=== PATIENT | male | born 1970 | race Caucasian/White ===

== ENCOUNTER → 2023-07-13 06:44 | Outpatient (REF) | payer MEDICARE, SELFPAY ==
[2023-07-13 07:57] LABS: % Basophils 0.4 % (0-2); % Eosinophils 1.4 % (0-6); % Immature Granulocytes 0.2 % (0-0.5); % Lymphocytes 38.8 % (20.5-51.1); % Monocytes 5.8 % (1.7-9.3); % Neutrophils 53.4 % (42.2-75.2); Absolute Eosinophils 0.1 10^3/uL (0-0.7); Absolute Lymphocytes 3.7 10^3/uL (1.2-3.4); Absolute Monocytes 0.6 10^3/uL (0.1-0.6); Absolute Neutrophils 5.1 10^3/uL (1.4-6.5); Hematocrit 44.2 % (39.0-52.0); Hemoglobin 15.5 g/dL (13.0-18.0); Mean Corp Hgb Conc. 35.1 g/dL (33.0-37.0); Mean Corpuscular Hgb 28.5 pg (27.0-31.0); Mean Corpuscular Volume 81.3 fL (80.0-94.0); Nucleated Red Blood Cells % 0 % (-); Red Blood Cell Count 5.44 10^6/uL (4.70-6.10); Red Cell Dist. Width 13.3 % (11.5-14.5); White Blood Cell Count 9.5 10^3/uL (4.8-10.8)
[2023-07-13 08:32] LABS: Microalbumin, Random Urine 8.9 mg/dl (0.6-1.7)
[2023-07-13 08:44] LABS: Mean Platelet Volume 11.4 fL (7.4-10.4)
[2023-07-13 08:45] LABS: Platelet Count 179 10^3/uL (130-400)
[2023-07-13 10:14] LABS: ALT (SGPT) 73 U/L (0-50); AST (SGOT) 81 U/L (17-59); Albumin 4.6 g/dl (3.5-5.0); Alkaline Phosphatase 75 U/L (38-126); Blood Urea Nitrogen 18 mg/dl (9-20); Calcium 9.9 mg/dl (8.4-10.2); Carbon Dioxide 25 mmol/L (22-30); Chloride 98 mmol/L (98-107); Glucose 103 mg/dl (70-99); HDL Cholesterol 35 mg/dl; LDL Cholesterol, Calculated 40 mg/dl; Potassium 3.9 mmol/L (3.5-5.1); Sodium 137 mmol/L (135-145); Total Cholesterol 113 mg/dl (50-199); Total Protein 7.4 g/dl (6.3-8.2); Triglyceride 193 mg/dl (10-149); Very Low Density Lipoprotein 38 mg/dl (0-30); eGFR > 60.00
[2023-07-13 10:50] LABS: PSA, Total - Screen 1.92 ng/ml (0.0-4.0); TSH 2.93 uIU/ml (0.47-4.68)
[2023-07-13 12:03] LABS: Glycohemoglobin (HgbA1c) 7.2 % (4.0-5.6)
== END ==
LOC: REG 06:44
PROVIDERS: ATTENDING PHYSICIAN Internal Medicine
DX: M10.9 Gout, unspecified (principal); I10 Essential (primary) hypertension; E11.9 Type 2 diabetes mellitus without complications; I25.10 Atherosclerotic heart disease of native coronary artery without angina pectoris; I42.9 Cardiomyopathy, unspecified; G47.33 Obstructive sleep apnea (adult) (pediatric); R74.8 Abnormal levels of other serum enzymes; Z12.5 Encounter for screening for malignant neoplasm of prostate
CPT/HCPCS: 36415; 80053; 80061; 82043; 83036; 84443; 85025; G0103

== ENCOUNTER → 2023-12-06 06:20 | Outpatient (REF) | payer MEDICARE, SELFPAY ==
[2023-12-06 08:02] LABS: ALT (SGPT) 28 U/L (0-50); AST (SGOT) 35 U/L (17-59); Albumin 4.5 g/dl (3.5-5.0); Alkaline Phosphatase 52 U/L (38-126); Blood Urea Nitrogen 13 mg/dl (9-20); Calcium 9.9 mg/dl (8.4-10.2); Carbon Dioxide 24 mmol/L (22-30); Chloride 100 mmol/L (98-107); Glucose 90 mg/dl (70-99); HDL Cholesterol 31 mg/dl; Potassium 4.2 mmol/L (3.5-5.1); Sodium 136 mmol/L (135-145); Total Bilirubin 0.9 mg/dl (0.2-1.3); Total Cholesterol 210 mg/dl (50-199); Total Protein 7.1 g/dl (6.3-8.2); Uric Acid 5.1 mg/dl (3.5-8.5); eGFR > 60.00
[2023-12-06 08:04] LABS: Triglyceride 510 mg/dl (10-149)
[2023-12-06 08:28] LABS: LDL Cholesterol, Direct 107 mg/dl
[2023-12-06 10:30] LABS: Glycohemoglobin (HgbA1c) 5.3 % (4.0-5.6)
== END ==
LOC: REG 06:20
PROVIDERS: ATTENDING PHYSICIAN Internal Medicine
DX: E78.5 Hyperlipidemia, unspecified (principal); E11.9 Type 2 diabetes mellitus without complications; Z87.39 Personal history of other diseases of the musculoskeletal system and connective tissue
CPT/HCPCS: 36415; 80053; 80061; 83036; 83721; 84550

== ENCOUNTER → 2024-07-04 06:29 | Outpatient (REF) | payer MEDICARE, SELFPAY ==
[2024-07-04 07:50] LABS: ALT (SGPT) 95 U/L (0-50); AST (SGOT) 88 U/L (17-59); Albumin 4.8 g/dl (3.5-5.0); Alkaline Phosphatase 72 U/L (38-126); Blood Urea Nitrogen 14 mg/dl (9-20); Calcium 9.5 mg/dl (8.4-10.2); Carbon Dioxide 25 mmol/L (22-30); Chloride 100 mmol/L (98-107); Glucose 135 mg/dl (70-99); HDL Cholesterol 38 mg/dl; LDL Cholesterol, Calculated 61 mg/dl; Potassium 3.7 mmol/L (3.5-5.1); Sodium 137 mmol/L (135-145); Total Bilirubin 0.8 mg/dl (0.2-1.3); Total Cholesterol 160 mg/dl (50-199); Total Protein 7.4 g/dl (6.3-8.2); Triglyceride 309 mg/dl (10-149); Very Low Density Lipoprotein 61 mg/dl (0-30); eGFR > 60.00
== END ==
LOC: REG 06:29
PROVIDERS: ATTENDING PHYSICIAN Internal Medicine Cardiovascular Disease; FAMILY PHYSICIAN Internal Medicine
DX: E78.5 Hyperlipidemia, unspecified (principal)
CPT/HCPCS: 36415; 80053; 80061

== ENCOUNTER → 2024-07-17 07:11 | Outpatient (REF) | payer MEDICARE, SELFPAY ==
[2024-07-17 08:18] LABS: % Basophils 0.5 % (0-2); % Eosinophils 2.7 % (0-6); % Immature Granulocytes 0.5 % (0-0.5); % Lymphocytes 41.2 % (20.5-51.1); % Monocytes 6.4 % (1.7-9.3); % Neutrophils 48.7 % (42.2-75.2); Absolute Eosinophils 0.2 10^3/uL (0-0.7); Absolute Lymphocytes 3.5 10^3/uL (1.2-3.4); Absolute Monocytes 0.6 10^3/uL (0.1-0.6); Absolute Neutrophils 4.2 10^3/uL (1.4-6.5); Hematocrit 43.9 % (39.0-52.0); Hemoglobin 15.6 g/dL (13.0-18.0); Mean Corp Hgb Conc. 35.5 g/dL (33.0-37.0); Mean Corpuscular Hgb 30.5 pg (27.0-31.0); Mean Corpuscular Volume 85.7 fL (80.0-94.0); Nucleated Red Blood Cells % 0 % (-); Platelet Count 189 10^3/uL (130-400); Red Blood Cell Count 5.12 10^6/uL (4.70-6.10); Red Cell Dist. Width 14.5 % (11.5-14.5); White Blood Cell Count 8.6 10^3/uL (4.8-10.8)
[2024-07-17 09:00] LABS: ALT (SGPT) 60 U/L (0-50); AST (SGOT) 48 U/L (17-59); Alkaline Phosphatase 71 U/L (38-126); Blood Urea Nitrogen 14 mg/dl (9-20); Calcium 9.7 mg/dl (8.4-10.2); Carbon Dioxide 23 mmol/L (22-30); Chloride 103 mmol/L (98-107); Glucose 131 mg/dl (70-99); HDL Cholesterol 36 mg/dl; LDL Cholesterol, Calculated 81 mg/dl; Potassium 3.9 mmol/L (3.5-5.1); Sodium 142 mmol/L (135-145); Total Bilirubin 0.9 mg/dl (0.2-1.3); Total Cholesterol 154 mg/dl (50-199); Total Protein 7.8 g/dl (6.3-8.2); Triglyceride 186 mg/dl (10-149); Very Low Density Lipoprotein 37 mg/dl (0-30); eGFR > 60.00
[2024-07-17 09:26] LABS: TSH 2.24 uIU/ml (0.47-4.68)
[2024-07-17 09:57] LABS: Microalbumin, Random Urine 5.2 mg/dl (0.6-1.7)
[2024-07-17 10:13] LABS: Glycohemoglobin (HgbA1c) 6.4 % (4.0-5.6)
[2024-07-18 14:33] LABS: PSA Total 1.4 ng/mL (0.0-4.0)
== END ==
LOC: REG 07:11
PROVIDERS: ATTENDING PHYSICIAN Internal Medicine
DX: E78.5 Hyperlipidemia, unspecified (principal); E11.9 Type 2 diabetes mellitus without complications; N40.0 Benign prostatic hyperplasia without lower urinary tract symptoms; R53.83 Other fatigue; M10.9 Gout, unspecified
CPT/HCPCS: 36415; 80053; 80061; 82043; 83036; 84153; 84154; 84443; 84550; 85025

== ENCOUNTER → 2024-09-10 06:36 | Outpatient (REF) | payer MEDICARE, SELFPAY ==
[2024-09-10 08:27] LABS: HDL Cholesterol 44 mg/dl; LDL Cholesterol, Calculated 82 mg/dl; Total Cholesterol 167 mg/dl (50-199); Triglyceride 207 mg/dl (10-149); Very Low Density Lipoprotein 41 mg/dl (0-30)
== END ==
LOC: REG 06:36
PROVIDERS: ATTENDING PHYSICIAN Student in an Organized Health Care Education/Training Program; FAMILY PHYSICIAN Internal Medicine
DX: I25.10 Atherosclerotic heart disease of native coronary artery without angina pectoris (principal)
CPT/HCPCS: 36415; 80061

== ENCOUNTER → 2024-10-07 06:27 | Outpatient (REF) | payer MEDICARE, SELFPAY ==
[2024-10-07 08:56] LABS: ALT (SGPT) 77 U/L (0-50); AST (SGOT) 55 U/L (17-59); Albumin 4.6 g/dl (3.5-5.0); Alkaline Phosphatase 75 U/L (38-126); Blood Urea Nitrogen 18 mg/dl (9-20); Calcium 9.1 mg/dl (8.4-10.2); Carbon Dioxide 21 mmol/L (22-30); Chloride 105 mmol/L (98-107); Glucose 101 mg/dl (70-99); HDL Cholesterol 34 mg/dl; LDL Cholesterol, Calculated 8 mg/dl; Potassium 3.9 mmol/L (3.5-5.1); Sodium 140 mmol/L (135-145); Total Cholesterol 72 mg/dl (50-199); Total Protein 7.3 g/dl (6.3-8.2); Triglyceride 154 mg/dl (10-149); Very Low Density Lipoprotein 30 mg/dl (0-30); eGFR > 60.00
[2024-10-10 00:40] LABS: Lipoprotein a (Lp a) 10 mg/dL (<=29)
== END ==
LOC: REG 06:27
PROVIDERS: ATTENDING PHYSICIAN Student in an Organized Health Care Education/Training Program; FAMILY PHYSICIAN Internal Medicine
DX: I25.10 Atherosclerotic heart disease of native coronary artery without angina pectoris (principal); E78.5 Hyperlipidemia, unspecified; E11.9 Type 2 diabetes mellitus without complications; R74.8 Abnormal levels of other serum enzymes; I10 Essential (primary) hypertension
CPT/HCPCS: 36415; 80053; 80061; 83695

== ENCOUNTER → 2025-01-13 06:56 | Outpatient (REF) | payer MEDICARE, SELFPAY ==
[2025-01-13 08:21] LABS: ALT (SGPT) 50 U/L (0-50); AST (SGOT) 41 U/L (17-59); Albumin 4.5 g/dl (3.5-5.0); Alkaline Phosphatase 58 U/L (38-126); Blood Urea Nitrogen 12 mg/dl (9-20); Calcium 9.3 mg/dl (8.4-10.2); Carbon Dioxide 26 mmol/L (22-30); Chloride 103 mmol/L (98-107); Glucose 118 mg/dl (70-99); HDL Cholesterol 35 mg/dl; LDL Cholesterol, Calculated -7 mg/dl; Potassium 3.7 mmol/L (3.5-5.1); Sodium 139 mmol/L (135-145); Total Protein 7.2 g/dl (6.3-8.2); Very Low Density Lipoprotein 69 mg/dl (0-30); eGFR > 60.00
== END ==
LOC: REG 06:56
PROVIDERS: ATTENDING PHYSICIAN Nurse Practitioner
DX: E78.5 Hyperlipidemia, unspecified (principal); E11.9 Type 2 diabetes mellitus without complications; R53.83 Other fatigue
CPT/HCPCS: 36415; 80053; 80061

== ENCOUNTER 2025-04-09 12:04 | Emergency (ER) | payer MEDICARE, SELFPAY ==
[2025-04-09 12:06] VITALS: BP 146/87
--- NOTE | 2025-04-09 12:43 | ED.GENMED ---
History of Present Illness
General
Chief Complaint: Foreign Body Removal
Time Seen by Provider: 04/09/25 12:43
History of Present Illness
History of Present Illness:
FOCUSED PAST MEDICAL HISTORY
- Diabetes, CAD/WI
REVIEW OF OLD RECORDS
- I reviewed records, the patient had colonoscopy in 2020
Note:
CHIEF COMPLAINT(S)
Swelling and difficulty removing a gold ring from the finger.
HISTORY OF PRESENT ILLNESS
The patient is a 55-year-old male who presents with significant swelling of the finger, leading to difficulty removing a gold ring. The patient recounted that the ring was placed on the finger on and swelling had been increasing
since. The patient initially sought care at an urgent care facility where an attempt was made to cut the ring using a manual cutter, leaving the ring partially cut and unable to be removed. The patient works in construction, which involves manual
handling and believes this may have contributed to the situation. The patient is diabetic, which raises concerns over potential impaired circulation and risk of infection. During the examination, swelling of the finger was observed, suggesting
impaired blood flow due to the constricting ring.
CHRONIC MEDICAL CONDITIONS SIGNIFICANTLY AFFECTING CARE
Diabetes Mellitus.
PHYSICAL EXAM
General: Alert, no acute distress.
Skin: Warm, dry.
Head: Normocephalic, atraumatic.
Neck: Supple, trachea midline.
Eyes, Ears, Nose, Mouth, and Throat: Oral mucosa moist.
Cardiovascular: Normal peripheral perfusion, no edema.
Respiratory: Respirations are non-labored.
Gastrointestinal: Abdomen nondistended.
Back: Normal range of motion, normal alignment.
Musculoskeletal: Diffuse edema noted to the right ring finger with swelling most predominantly noted just distal to the ring located at the very base of the affected digit, there is some surrounding superficial cuts but no clear sign of infection or
any purulence it is markedly tender to touch
Neurological: Alert and oriented to person, place, time, and situation, no focal neurological deficit observed.
Psychiatric: Cooperative, appropriate mood and affect.
PLAN
The plan includes prescribing an oral antibiotic for one or two days to prevent infection due to the open skin from ring removal, given the patients diabetic status. Antibiotics to be dispensed through the patient�s preferred pharmacy. The patient
was advised to have the ring pieces taken to a jeweler for resizing once the swelling subsides.
DIFFERENTIAL DIAGNOSIS
The Differential Diagnosis includes, in no particular order and is not limited to:
1. Finger trauma with swelling.
2. Lymphatic obstruction due to constricting metal.
3. Infection secondary to dermal openings.
4. Vascular compromise.
5. Diabetes-related peripheral vascular disease.
6. Contact dermatitis.
7. Allergic reaction to metal.
8. Cellulitis.
9. Foreign body granuloma.
10. Erysipelas.
Disposition:
SUMMARY OF ENCOUNTER
The patient, a 55-year-old male with diabetes, presented to the emergency department with significant swelling of the finger due to a constricting gold ring. Initially, the patient sought treatment at an urgent care facility where attempts to remove
the ring resulted in a partial cut. On examination, the constricted ring was causing impaired blood circulation in the swollen finger. In the emergency department, further attempts were made to safely remove the ring by cutting it in several places
despite the marked swelling, eventually achieving successful removal.
ASSESSMENT
The patient experienced finger swelling due to a constricting ring, which was exacerbated by manual handling work. There is also concern for potential complications due to diabetes affecting circulation and healing.
PLAN
An oral antibiotic is prescribed to prevent infection, especially considering the patients diabetic status, which predisposes them to a higher risk of infection. The patient was advised to visit a jeweler for resizing the ring after the swelling
subsides.
PATIENT EDUCATION AND COUNSELING
The patient was educated about the importance of monitoring for signs of infection such as redness, increased pain, or discharge, especially given his diabetic condition. Instructions were given to seek medical attention if any of these symptoms are
observed. The patient was also counseled to avoid wearing rings in the future to prevent recurrence.
MEDICATION RECONCILIATION
The patient was prescribed an oral antibiotic for 1-2 days to prevent infection. Dispensing will be through the patients preferred pharmacy.
MEDICAL DECISION MAKING
- Number and Complexity of Problems Addressed: Chronic conditions affecting care [Diabetes Mellitus]. Differential diagnosis includes finger trauma with swelling, lymphatic obstruction, infection risk, vascular compromise, diabetes-related
peripheral vascular disease, and other potential complications listed in the differential diagnosis.
- Data:
Category 1: Testing was not necessary following removal, as the main concern was mechanical constriction due to the ring.
- Risk: Prescription medication was prescribed to prevent infection. Consideration of Admission/Observation: Escalation of care including admission/observation was considered given the complexity and risk of the patients presenting complaint, exam
findings, and underlying comorbidities. However, ultimately the patient is deemed safe for outpatient management with close follow-up. The reasoning is work-up reassuring and does not reveal any acute life/organ threatening processes, patients
symptoms are well controlled upon reevaluation, reexamination is reassuring, vitals are stable, patient agrees with discharge, and is reliable for follow-up.
DIAGNOSIS
1. Constricting ring causing finger swelling (T83.89XA).
2. Diabetes mellitus
UPDATE
- Ring was removed successfully but with moderate difficulty
- Placed on antibiotics to help prevent infection
Past History
Past History
ED Past Medical History: HTN and Other (Questionable history of brain tumor, alcoholism); Negative Hypercholesterolemia, IDDM or NIDDM
ED Past Surgical History: None
Social History
Tobacco: Non-smoker
Alcohol: Former
Drug: None
Living: with family
Family History
Family History: CAD (Any artery infarct there is)
Phy Exam
Physical Exam
Physical Exam:
See HPI
Course
Orders/Labs/Results
Orders:
Orders
04/09/25 13:28
Cephalexin Monohydrate [Keflex] 500 mg PO NOW STA
Vital Signs
Initial and Last Documented VS:
Initial Vital Signs
Temp Pulse Resp BP Pulse Ox
36.8 C 80 15 146/87 100
04/09/25 12:06 04/09/25 12:06 04/09/25 12:06 04/09/25 12:06 04/09/25 12:06
Last Documented Vital Signs
Temp Pulse Resp BP Pulse Ox
36.8 C 80 15 146/87 100
04/09/25 12:06 04/09/25 12:06 04/09/25 12:06 04/09/25 12:06 04/09/25 12:43
Procedures
Ring removal
Ring removed with: ring cutters
Is finger swollen distally?: Yes
Distal sensation: intact to touch
Distal capillary refill: brisk
*Pulse Oximetry
SaO2: 100
Oxygen Mode of Delivery: Room air
Patient hypoxic: no
*Critical Care Note
Total Time (30-74mins, 75-104mins- exclusive of procedures): Not Applicable
ED Attending Note
-
Portions of this chart may have been created with voice recognition software.� Occasional wrong word or��sound alike� substitutions may have occurred due to the inherent limitations of voice recognition software.
Discharge Plan
Departure
Patient Disposition: Home (Routine Discharge)
Date of Disposition: 04/09/25
Time of Disposition: 13:28
Patient with high blood pressure during this ER visit?: Yes
Discharge Problem:
Tight ring on finger
Instructions: Foreign Body in Skin (DC), BLOOD PRESSURE
Prescriptions:
New
cephalexin 500 mg tablet
500 mg PO BID Qty: 4 0RF
No Action
clopidogrel 75 MG tablet
75 mg PO DAILY Qty: 90 3RF
aspirin 81 MG tablet,delayed release (DR/EC)
81 mg PO DAILY Qty: 0 0RF
atorvastatin 20 MG tablet
20 mg PO QPM Qty: 90 3RF
losartan 50 MG tablet
50 mg PO DAILY
metformin 500 MG tablet
500 mg PO BID@0800,1700
metoprolol succinate 50 MG tablet extended release 24 hr
50 mg PO DAILY
chlorthalidone 25 MG tablet
25 mg PO DAILY
citalopram 20 MG tablet
20 mg PO DAILY
potassium chloride [Klor-Con M20] 20 MEQ tablet,ER particles/crystals
20 meq PO DAILY
allopurinol 300 MG tablet
300 mg PO DAILY
Activity Restrictions/Additional Instructions:
Follow-up with cornelior for ring sizing and repair of the ring. I sent a prescription for Keflex to your pharmacy to help prevent infection.
Interventions
Interventions:
*General Assessment Last Done: 04/09/25 12:06
*Neglect/Abuse Screening Last Done: 04/09/25 12:50
*ED COVID-19 Vaccine History Last Done: 04/09/25 12:06
*ED Influenza Vaccine History Last Done: 04/09/25 12:06
[facility] Fall Risk Assessment Tool Last Done: 04/09/25 12:50
*Risk Screen - Suicide (C-SSRS) Last Done: 04/09/25 12:06
Discharge Date and Time
Print Language: [place]
[2025-04-09] MEDS: KEFLEX 500 MG PO (13:44)
[2025-04-09 13:46] VITALS: BP 139/81
== END 2025-04-09 13:47 | disposition home or self-care (01) ==
LOC: EMR 12:04
PROVIDERS: EMERGENCY PHYSICIAN Emergency Medicine; FAMILY PHYSICIAN Internal Medicine
DX: S60.449A External constriction of unspecified finger, initial encounter (principal); W49.04XA Ring or other jewelry causing external constriction, initial encounter; E11.9 Type 2 diabetes mellitus without complications; I25.10 Atherosclerotic heart disease of native coronary artery without angina pectoris; I10 Essential (primary) hypertension; I25.2 Old myocardial infarction; Z82.49 Family history of ischemic heart disease and other diseases of the circulatory system
CPT/HCPCS: 99282